=== PATIENT | male | born 1975 | race African-American/Black ===

== ENCOUNTER 2018-04-22 18:25 | Emergency (ER) | payer BC ==
[~2018-04-22] VITALS: Ht 172.7 cm; Wt 100.0 kg
[~2018-04-22 18:25] MED LIST: BACTRIM DS1 TAB OR; CIPRO HC OT; DARVOCET-N 100100 MG OR; LORTAB 5 OR; NO HOME MEDS; ULTRAM50 M1 PO
[2018-04-22 19:15] VITALS: BP 126/83
== END 2018-04-22 19:19 | disposition home or self-care (01) | DRG 566 ==
LOC: ED 18:25
DX: M25.461 Effusion, right knee (principal); M25.561 Pain in right knee; F17.210 Nicotine dependence, cigarettes, uncomplicated

== ENCOUNTER 2018-08-07 08:35 | Emergency (ER) | payer BC ==
[~2018-08-07] VITALS: Ht 175.3 cm; Wt 90.0 kg
[2018-08-07] MEDS ORDERED: TORADOL PO (09:53)
[2018-08-07] MEDS ORDERED: AUGMENTIN500TAB PO (09:53)
[2018-08-07 10:02] VITALS: BP 150/84
== END 2018-08-07 10:10 | disposition home or self-care (01) | DRG 103 ==
LOC: ED 08:35
DX: R51 Headache (principal); F17.210 Nicotine dependence, cigarettes, uncomplicated

== ENCOUNTER 2019-09-13 10:52 | Emergency (ER) | payer BC ==
[~2019-09-13 10:52] MED LIST changes: +AUGMENTIN500TAB PO; +TORADOL PO
[2019-09-13] MEDS ORDERED: ALL DAY10 MG PO (11:21)
[2019-09-13 11:50] VITALS: BP 131/89
== END 2019-09-13 11:50 | disposition home or self-care (01) | DRG 153 ==
LOC: ED 10:52
DX: J30.9 Allergic rhinitis, unspecified (principal); F17.200 Nicotine dependence, unspecified, uncomplicated

== ENCOUNTER 2021-04-16 16:21 | Emergency (ER) | payer BC ==
[~2021-04-16] VITALS: Ht 175.3 cm; Wt 95.0 kg
[~2021-04-16 16:21] MED LIST changes: +ALL DAY10 MG PO
[2021-04-16] MEDS ORDERED: CLARITIN10 M1 PO (18:42)
[2021-04-16 19:17] VITALS: BP 138/80
== END 2021-04-16 19:17 | disposition home or self-care (01) | DRG 866 ==
LOC: ED 16:21
DX: B34.9 Viral infection, unspecified (principal); F17.200 Nicotine dependence, unspecified, uncomplicated; Z20.822 Contact with and (suspected) exposure to COVID-19